=== PATIENT | female | born 1945 | race Two or more races ===

== ENCOUNTER 2019-05-30 06:25 | Day surgery (SDC) | payer OTHER | END 2019-05-30 12:50 | disposition home or self-care (01) | LOC: AMB-ENDOS 06:25 | DX: K63.5 Polyp of colon (principal); K57.30 Diverticulosis of large intestine without perforation or abscess without bleeding; K64.1 Second degree hemorrhoids ==

== ENCOUNTER 2019-11-12 11:56 | Emergency (ER) | payer OTHER ==
[~2019-11-12] VITALS: Ht 149.9 cm; Wt 80.3 kg
[2019-11-12] MEDS ORDERED: FORTAMET500 MG (12:11)
[2019-11-12] MEDS ORDERED: ZESTRIL10 M1 (12:11)
== END 2019-11-12 17:16 | disposition home or self-care (01) ==
LOC: ER 11:56
DX: R07.89 Other chest pain (principal); I10 Essential (primary) hypertension

== ENCOUNTER 2020-06-04 15:49 | Emergency (ER) | payer OTHER ==
[~2020-06-04] VITALS: Ht 149.9 cm; Wt 79.4 kg
[~2020-06-04 15:49] MED LIST: FORTAMET500 MG; ZESTRIL10 M1
== END 2020-06-04 20:53 | disposition home or self-care (01) ==
LOC: ER 15:49
DX: R10.11 Right upper quadrant pain (principal); R10.12 Left upper quadrant pain

== ENCOUNTER 2020-07-02 07:54 | Day surgery (SDC) | payer OTHER | END 2020-07-02 13:50 | disposition home or self-care (01) | LOC: AMB-ENDOS 07:54 | PROVIDERS: ATTEND Colon & Rectal Surgery | DX: D12.4 Benign neoplasm of descending colon (principal); D13.1 Benign neoplasm of stomach; K44.9 Diaphragmatic hernia without obstruction or gangrene; K64.1 Second degree hemorrhoids; Z20.822 Contact with and (suspected) exposure to COVID-19 ==

== ENCOUNTER 2020-08-04 16:15 | Emergency (ER) | payer OTHER ==
[~2020-08-04] VITALS: Ht 149.9 cm; Wt 84.8 kg
[2020-08-04] MEDS ORDERED: CARAFATE1 GM PO (23:26)
[2020-08-04] MEDS ORDERED: INTESTINEX680 M1 PO (23:26)
[2020-08-04] MEDS ORDERED: LEVSIN0.125 MG PO (23:26)
[2020-08-04] MEDS ORDERED: CIPROFLOXACIN500 MG PO (23:26)
[2020-08-04] MEDS ORDERED: PEPCID AC20 MG PO (23:26)
[2020-08-04] MEDS ORDERED: PROTONIX20 MG PO (23:26)
[2020-08-04] MEDS ORDERED: METOCLOPRAMIDE10 MG PO (23:35)
== END 2020-08-04 23:40 | disposition home or self-care (01) ==
LOC: ER 16:15
DX: K57.30 Diverticulosis of large intestine without perforation or abscess without bleeding (principal); R14.0 Abdominal distension (gaseous); R07.89 Other chest pain; R06.02 Shortness of breath

== ENCOUNTER 2021-01-21 15:30 | Emergency (ER) | payer OTHER ==
[~2021-01-21] VITALS: Ht 170.2 cm; Wt 79.4 kg
[~2021-01-21 15:30] MED LIST changes: +CARAFATE1 GM PO; +CIPROFLOXACIN500 MG PO; +INTESTINEX680 M1 PO; +LEVSIN0.125 MG PO; +METOCLOPRAMIDE10 MG PO; +PEPCID AC20 MG PO; +PROTONIX20 MG PO
[2021-01-21] MEDS ORDERED: SYNTHROID75 MCG (15:51)
== END 2021-01-21 20:37 | disposition home or self-care (01) ==
LOC: ER 15:30
DX: N30.81 Other cystitis with hematuria (principal)

== ENCOUNTER 2021-06-03 12:22 | Emergency (ER) | payer OTHER ==
[~2021-06-03] VITALS: Ht 149.9 cm; Wt 77.1 kg
[~2021-06-03 12:22] MED LIST changes: +SYNTHROID75 MCG
[2021-06-03] MEDS ORDERED: JANUVIA50 MG PO (12:56)
== END 2021-06-03 16:02 | disposition home or self-care (01) ==
LOC: ER 12:22
DX: M54.9 Dorsalgia, unspecified (principal); E11.9 Type 2 diabetes mellitus without complications; Z79.84 Long term (current) use of oral hypoglycemic drugs

== ENCOUNTER 2022-04-12 05:01 | Emergency (ER) | payer OTHER ==
[~2022-04-12] VITALS: Ht 152.4 cm; Wt 80.7 kg
[~2022-04-12 05:01] MED LIST changes: +JANUVIA50 MG PO
== END 2022-04-12 08:04 | disposition home or self-care (01) ==
LOC: ER 05:01
DX: R04.0 Epistaxis (principal)

== ENCOUNTER 2022-10-24 11:06 | Emergency (ER) | payer OTHER ==
[~2022-10-24] VITALS: Ht 152.4 cm; Wt 80.7 kg
== END 2022-10-24 16:03 | disposition left against medical advice (07) ==
LOC: ER 11:06
DX: Z53.21 Procedure and treatment not carried out due to patient leaving prior to being seen by health care provider (principal)

== ENCOUNTER → 2025-02-18 | Emergency (ER) | payer OTHER ==
[~2025-02-18] VITALS: Ht 152.4 cm; Wt 81.6 kg
[~2025-02-18] MED LIST changes: +BENZONATATE200 M1 PO; +CEFTRIAXONE SODIUM 1,000 MG VIAL IM ONE; +CIPRO500 MG PO; +COZAAR50 MG PO; +FAMOtidine 10 MG/ML (4ML VIAL) IV PUSH ONE; +HYOSCYAMINE SULFATE 0.125 MG TAB.SUBL SL ONE; +KAPSPARGO SPRIN25 MG PO; +LEVALBUTER0.63 MG/3 IH; +PROBIOTIC1 EAC2 PO; +SIMETHICONE 125 MG CAPSULE PO ONE
[2025-02-18 19:22] LABS: BASO % 0.6 % (0.1-1.2); EOS # 0.16 (0.04-0.54); EOS % 1.1 % (0.7-7.0); LYMPH # 2.89 (1.18-3.74); LYMPH % 20.5 % (19.3-53.1); MEAN PLATELET VOLUME 10.80 fl (9.4-12.4); MONO # 0.86 (0.24-0.82); MONO % 6.1 % (4.7-12.5); NEUT # 10.07 (1.56-6.13); NEUT % 71.3 % (34.0-71.1); RED CELL DISTRIBUTION WIDTH 16.5 % (11.6-14.4)
[2025-02-18 19:47] LABS: ALT/SGPT 30.0 U/L (12-78); AST/SGOT 26.0 U/L (15-37); BILIRUBIN TOTAL 0.29 mg/dL (0.3-1.2); BUN CREA RATIO 24.0 (7.0-25.0); CREATININE SERUM 1.27 mg/dL (0.55-1.02); GFR 40.39; GLOBULINA 4.1 G/DL (2.4-3.5); GLUCOSE FASTING 122.0 mg/dL (65-100); OSMOLALITY SERUM 287.0 MOSM/KG (275-295)
== END | disposition home or self-care (01) ==
LOC: ER 16:24
PROVIDERS: General Practice
DX: R14.3 Flatulence (principal); R14.2 Eructation; R19.8 Other specified symptoms and signs involving the digestive system and abdomen; J06.9 Acute upper respiratory infection, unspecified; I10 Essential (primary) hypertension; E11.9 Type 2 diabetes mellitus without complications
CPT/HCPCS: 36415; 71046; 74176; 96365; 96372; 99284; J0696; J3490